=== PATIENT | male | born 1965 ===

== ENCOUNTER 2021-08-25 16:49 | Emergency (ER) | payer SELFPAY ==
[2021-08-25 19:07] VITALS: BP 144/85
== END 2021-08-25 20:00 | disposition left against medical advice (07) ==
LOC: ED 16:49
DX: S91.311A Laceration without foreign body, right foot, initial encounter (principal); Z53.21 Procedure and treatment not carried out due to patient leaving prior to being seen by health care provider; W26.8XXA Contact with other sharp object(s), not elsewhere classified, initial encounter; Y93.89 Activity, other specified; Y92.89 Other specified places as the place of occurrence of the external cause; Y99.8 Other external cause status